=== PATIENT | female | born 1955 | race Caucasian/White ===

== ENCOUNTER 2019-05-28 10:57 | Emergency (ER) | payer MEDICARE, OTHER ==
[~2019-05-28] VITALS: Ht 165.1 cm; Wt 65.0 kg
[~2019-05-28 10:57] MED LIST: LEVO75 PO
[2019-05-28 11:02] VITALS: BP 143/81
== END 2019-05-28 11:32 | disposition home or self-care (01) ==
LOC: EMS 11:05
DX: Z00.00 Encounter for general adult medical examination without abnormal findings (principal); Z88.6 Allergy status to analgesic agent

== ENCOUNTER 2020-10-13 13:20 | Emergency (ER) | payer MEDICARE, OTHER ==
[~2020-10-13] VITALS: Ht 167.6 cm; Wt 77.3 kg
[2020-10-13 13:24] VITALS: BP 137/94
[2020-10-13 14:14] LABS: COVID AG,FIA SOURCE NASOPHARYNGEAL
== END 2020-10-13 15:18 | disposition home or self-care (01) ==
LOC: EMS 13:52
DX: Z20.822 Contact with and (suspected) exposure to COVID-19 (principal); E03.9 Hypothyroidism, unspecified
CPT/HCPCS: 99283

== ENCOUNTER 2021-02-17 12:37 | Emergency (ER) | payer MEDICARE, OTHER ==
[~2021-02-17] VITALS: Ht 162.6 cm; Wt 81.8 kg
[2021-02-17 13:26] VITALS: BP 151/73
== END 2021-02-17 15:24 | disposition left against medical advice (07) ==
LOC: EMS 12:37
DX: R06.00 Dyspnea, unspecified (principal); Z53.21 Procedure and treatment not carried out due to patient leaving prior to being seen by health care provider